=== PATIENT | female | born 1965 | race Caucasian/White ===

== ENCOUNTER 2017-01-29 15:30 | Observation (INO) | payer BC ==
[2017-01-29 16:44] LABS: Hematocrit 40 % (35-47); Hemoglobin 14.1 g/dl (12.0-16.0); Mean Corpuscular HGB Conc 35 g/dl (31-36); Mean Corpuscular Hemoglobin 31 pg (27-31); Mean Corpuscular Volume 88 fL (80-97); Mean Platelet Volume 8 um3 (7.4-10.4); Red Blood Count 4.57 10^6/ul (4.0-5.4); Red Cell Distribution Width 13 % (10.5-15)
[2017-01-29 17:03] LABS: Albumin 4.3 g/dL (3.2-5.2); BUN/Creatinine Ratio 21.8 (8-20); Calcium 9.7 mg/dL (8.6-10.3); EGFR Non-African American 78.5 (>60); Potassium 2.9 mmol/L (3.5-5.0); Total Bilirubin 0.5 mg/dL (0.2-1.0); Total Protein 7.3 g/dL (6.4-8.9)
[2017-01-29 17:04] LABS: Troponin I 0.01 ng/mL (<0.04)
--- NOTE | 2017-01-29 17:04 | RAD ---
Indication: Right-sided weakness. CT of the brain was performed without IV contrast. Ventricular structures are midline. No midline shift is noted. The extraction spaces are unremarkable. There is no evidence of intracranial mass or hemorrhage. No other high or low density lesions are identified. Mastoid air cells and paranasal sinuses are otherwise unremarkable. IMPRESSION: No intracranial mass or hemorrhage is noted.
[2017-01-29] MEDS ORDERED: Potassium Chlor TAB* 20 MEQ TAB.ER PO ONE (17:08)
--- NOTE | 2017-01-29 17:10 | RAD ---
Indication: Hypertension. 2 views of the chest including dual energy PA views demonstrates no mediastinal shift. Heart is of normal size and configuration. Lung howe are clear. IMPRESSION: No active cardiopulmonary disease is noted.
[2017-01-29] MEDS ORDERED: Labetalol IV* 5 MG/ML 20 ML VIAL IV PUSH ONE (17:16)
[2017-01-29 17:32] LABS: Magnesium 1.9 mg/dL (1.9-2.7)
[2017-01-29 17:35] LABS: T4 6.73 mcg/mL (6.09-12.23)
[2017-01-29 17:39] LABS: TSH (Thyroid Stimulating Horm) 4.21 mcIU/mL (0.34-5.60)
[2017-01-29] MEDS: KCL 10 MEQ/50 ML IVPREMIX* 10 MEQ/50 ML BAG IV SCH ×2 (18:07→19:33)
[2017-01-29] MEDS ORDERED: Cyclobenzaprine TAB* 10 MG PO PRN (19:24)
--- NOTE | 2017-01-29 20:52 | RAD ---
Indication: Right-sided weakness. Sagittal and axial T1, axial T2, FLAIR, diffusion and susceptibility weighted images of the brain were obtained. Ventricular structures are midline. No midline shift is noted. The extraction spaces are unremarkable. The FLAIR images demonstrates increased signal in the left cristal. This demonstrates restriction of diffusion is consistent with a left-sided pontine infarct. No intracranial mass or hemorrhage is noted. Susceptibility weighted images demonstrates no evidence of residual hemosiderin. No other areas of restriction of diffusion is noted. Mastoid air cells and paranasal sinuses are otherwise unremarkable. The orbits demonstrates no intraconal or extraconal masses. IMPRESSION: Small area of restriction of diffusion involving the left cristal consistent with a left pontine infarct.
[2017-01-29] MEDS ORDERED: Atorvastatin* 40 MG TAB PO SCH (21:00)
[2017-01-29] MEDS: Heparin VIAL(*) 5000 UNITS/ML VIAL (FIVE THOUSAND) SUBCUT SCH (21:53)
[2017-01-29] MEDS: Aspirin EC Low Dose* 81 MG TAB.EC PO SCH (21:54)
[2017-01-29] MEDS: amLODIPine TAB* 5 MG PO SCH (21:54)
--- NOTE | 2017-01-29 22:47 | HP ---
CC: Gabi Velez NP * HISTORY AND PHYSICAL: DATE OF ADMISSION: 01/29/17 PRIMARY CARE PROVIDER: Gabi Velez NP CHIEF COMPLAINT: Difficulty writing and unsteadiness. HISTORY OF PRESENT ILLNESS: Ms. Stacy is a 51-year-old female with a history of hypertension, hypo-thyroidism, chronic right hip pain, and B12 deficiency, who presents to initially her [facility] appointment and is found to have markedly elevated blood pressure. The patient was then referred to the emergency room. The patient states that over at least the last one month ( since she has been checking her blood pressures), her blood pressures have been running greater than 200/100. Today, at her [facility] appointment, her blood pressure was 196/110. The patient states that this past Wednesday, she and her worked out. She felt fine. During that time period, on Wednesday, she states that she felt very tired; on Wednesday she felt somewhat tired and the day prior to admission, she noted that she had a difficult time writing and felt off balance. The patient describes writing as being very difficult to read. 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 The patient's has noted since this past Wednesday that she has been off balance. The patient does complain of sciatic type issues and felt that her off balance state was likely related to that flaring up. The patient denies any significant or different headache. She denies any changes in vision. PAST MEDICAL HISTORY: 1. Hypertension - poorly controlled. 2. Hypokalemia. 3. Chronic right hip pain. 4. Hypothyroidism. 5. B12 deficiency. PAST SURGICAL HISTORY: 1. . 2. Bladder stretching as a child. ALLERGIES: No known drug allergies. MEDICATIONS: 1. Levothyroxine 75 microgram p.o. daily. 2. Cyclobenzaprine 5 mg p.o. t.i.d. p.r.n. spasm. 3. Triamterene/hydrochlorothiazide 37.5/25 1 tab p.o. daily. 4. Diclofenac sodium EC 75 mg p.o. twice daily. 5. Potassium citrate 10 mEq p.o. daily. 6. B complex 1 tab p.o. daily. 7. Vitamin B12 1000 mcg IM q. 2 weeks. 8. Magnesium plus calcium 1 tab p.o. daily. 9. Vitamin D3 2000 units p.o. daily. FAMILY HISTORY: Mom is living. She is 77. She has hypertension, hyperlipidemia, and diabetes. Dad is living, he is 76, he has hypertension, hyperlipidemia, and diabetes. SOCIAL HISTORY: The patient is a nonsmoker. She drinks alcohol on occasion. 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 She is . She has 2 children. Her is her healthcare proxy. REVIEW OF SYSTEMS: Complete 11-system review of systems is obtained. Pertinent positives and negatives are as per HPI and otherwise negative. PHYSICAL EXAMINATION GENERAL: The patient is a well-developed, middle-aged female, sitting in the stretcher, in no acute distress. VITAL SIGNS: Blood pressure 133/80, pulse 64, respirations 18, temp 97.7, O2 sat 97% on room air. HEENT: Pupils are equal, they are round. They react to light. Extraocular muscles are intact. Oropharynx is clear. Oral mucosa is moist. There is no submandibular, cervical, or supraclavicular adenopathy. Thyroid is not enlarged. No thyroid nodules are noted. PULMONARY: Lungs are clear to auscultation bilaterally. CARDIAC: Normal S1, S2. Regular rate and rhythm. I do not appreciate any murmurs. There is no lower extremity edema. ABDOMEN: Bowel sounds are present. Abdomen is soft, nontender, nondistended. MUSCULOSKELETAL: There is no cyanosis or clubbing of the digits. There is full active range of motion of all 4 extremities. NEUROLOGIC: Cranial nerves II through XII are grossly intact. Sensation is intact to light touch throughout. Strength is 5/5 and symmetric in the proximal upper and lower extremities. Distal strength in the right upper and lower extremity is 4/5. SKIN: Warm and dry. There are no rashes. DIAGNOSTIC STUDIES/LAB DATA: WBC 7.0, hemoglobin 14.1, hematocrit 40, platelets 366. Sodium 136, potassium 2.9, chloride 97, CO2 29, BUN 17, creatinine 0.78, glucose 104, lactic acid 1.6, calcium 9.7, magnesium 1.9, bilirubin 0.5, AST 24, ALT 30, alk phos 42. CPK 227, troponin 0.01. BNP 24, albumin 4.3, TSH 4.21. Chest x-ray, no acute pulmonary process. CT brain, no acute intracranial pathology. EKG revealed normal sinus rhythm without any acute ST-T wave abnormalities. ASSESSMENT AND PLAN: Ms. Stacy is a 51-year-old female with uncontrolled hypertension, who presents to the emergency room with complaints of difficulty writing and feeling of being off balance with ambulation and is found to have marked hypertension and mild right-sided weakness on exam. 1. Hypertensive encephalopathy versus CVA. The patient has persistent symptoms of right-sided weakness and difficulty with fine motor skills in the right upper extremity. I suspect the patient may have had a small stroke. The patient will be started on aspirin 81 mg p.o. daily. Improved blood pressure control will be achieved. The goal blood pressure will be around 160/90. The patient will have a lipid profile checked tomorrow morning. I will start her on Lipitor 40 . Tomorrow, neurology consultation will be requested. I have observed the patient's handwriting, which is incredibly difficult to read and she states that this is nowhere near her normal writing. I do not want to lower the patient's blood pressure too far as she is likely used to incredibly high blood pressures and needs the perfusion to her brain at this point. 2. Hypothyroidism. The patient will be maintained on her usual dose of Synthroid as her TSH is within normal range. 3. Hypertensive emergency. The patient's blood pressure as above is markedly elevated. This, in conjunction with her hypokalemia makes me concerned for primary hyperaldosteronism. A plasma renin activity level and plasma aldosterone concentration will be obtained. These will be obtained tomorrow morning. We will need to follow up these levels. 4. DVT prophylaxis. According to the Adult Thrombosis Prophylaxis Risk Factor Assessment Guide, the patient has a total risk factor score of 2, making her moderate risk. She will be placed on heparin 5000 units subcutaneous q. 12 hours. 5. Code status is full, again patient indicates that her is her healthcare proxy. TIME SPENT: Sixty five minutes was spent admitting this patient. [id number]/[facility] #: [id number] SARAVANAN
[2017-01-30 03:56] LABS: Urine Bilirubin Negative (Negative); Urine Glucose Negative (Negative); Urine Nitrite Negative (Negative)
[2017-01-30] MEDS ORDERED: Levothyroxine TAB* 75 MCG TAB PO SCH (06:00)
[2017-01-30 06:45] LABS: BUN/Creatinine Ratio 20.3 (8-20); Calcium 8.8 mg/dL (8.6-10.3); EGFR African American 126.8 (>60); EGFR Non-African American 98.6 (>60); Potassium 3.2 mmol/L (3.5-5.0)
[2017-01-30 07:25] LABS: Hematocrit 38 % (35-47); Hemoglobin 13.1 g/dl (12.0-16.0); Mean Corpuscular HGB Conc 34 g/dl (31-36); Mean Corpuscular Hemoglobin 30 pg (27-31); Mean Corpuscular Volume 88 fL (80-97); Mean Platelet Volume 9 um3 (7.4-10.4); Red Blood Count 4.31 10^6/ul (4.0-5.4); Red Cell Distribution Width 13 % (10.5-15)
[2017-01-30] MEDS: amLODIPine TAB* 5 MG PO SCH (08:03)
[2017-01-30] MEDS: Heparin VIAL(*) 5000 UNITS/ML VIAL (FIVE THOUSAND) SUBCUT SCH (08:03)
[2017-01-30] MEDS: Aspirin EC Low Dose* 81 MG TAB.EC PO SCH (08:03)
[2017-01-30] MEDS ORDERED: Acetaminophen TAB* 325 MG PO PRN (09:57)
[2017-01-30] MEDS ORDERED: Potassium Chlor TAB* 20 MEQ TAB.ER PO ONE (10:58)
--- NOTE | 2017-01-30 11:24 | PN ---
Subjective Date of Service: 01/30/17 Interval History: Pt is feeling ok. She slept alright over night. She states when she has been up to the bathroom she was still feeling slightly off balance. She thinks her hand coordination is slightly better today. Objective Active Medications: Acetaminophen (Tylenol Tab*) 650 mg PO Q4H PRN PRN Reason: PAIN Last Admin: 01/30/17 11:00 Dose: 650 mg Amlodipine Besylate (Norvasc Tab*) 5 mg PO DAILY [facility] Last Admin: 01/30/17 08:03 Dose: 5 mg Aspirin (Aspirin Ec Low Dose*) 81 mg PO DAILY [facility] Last Admin: 01/30/17 08:03 Dose: 81 mg Atorvastatin Calcium (Lipitor*) 40 mg PO 2100 [facility] Last Admin: 01/29/17 21:53 Dose: 40 mg Cyclobenzaprine HCl (Flexeril Tab*) 5 mg PO TID PRN PRN Reason: SPASMS Heparin Sodium (Porcine) (Heparin Vial(*)) 5,000 units SUBCUT Q12HR [facility] Last Admin: 01/30/17 08:03 Dose: 5,000 units Levothyroxine Sodium (Synthroid Tab*) 75 mcg PO 0600 [facility] Last Admin: 01/30/17 06:29 Dose: 75 mcg Vital Signs - 8 hr 01/30/17 01/30/17 03:29 07:41 Temperature 98.0 F 98.5 F Pulse Rate 95 86 Respiratory 20 16 Rate Blood Pressure 161/99 128/76 (mmHg) O2 Sat by Pulse 97 96 Oximetry Oxygen Devices in Use Now: None Appearance: Middle aged female sitting up in bed, NAD Eyes: No Scleral Icterus Ears/Nose/Mouth/Throat: Mucous Membranes Moist Respiratory: Symmetrical Chest Expansion and Respiratory Effort, Clear to Auscultation Cardiovascular: NL Sounds; No Murmurs; No JVD, RRR, No Edema Abdominal: NL Sounds; No Tenderness; No Distention Extremities: No Clubbing, Cyanosis Skin: No Rash or Ulcers, No Nodules or Sclerosis Neurological: Alert and Oriented x 3, - - mild R hand/foot weakness Result Diagrams: 01/30/17 06:20 01/30/17 06:20 Assess/Plan/Problems-Billing Ms Stacy is a 51 yo F who has a h/o difficult to control BP and hypothyroidism who presented to the ER with c/o markedly elevated blood pressure and R hand weakness and feeling off balance with walking. - Patient Problems (1) Left pontine CVA Current Visit: Yes Status: Acute Code(s): I63.50 - CEREB INFRC DUE TO UNSP OCCLS OR STENOS OF UNSP CEREB ARTERY SNOMED Code(s): 716529734 Comment: The MRI done last night shows a small left pontinine CVA. She has been started on ASA, lipitor (pt states she did not tolerated previously but is willing to try crestor). Continue BP control. Get carotid dopplers. The patient can have an echo as an outpatient. She needs PT/OT evals. I suspect her stroke is secondary to marked hypertension. (2) HTN (hypertension) Current Visit: Yes Status: Acute Code(s): I10 - ESSENTIAL (PRIMARY) HYPERTENSION SNOMED Code(s): 60427672 Comment: The patient's BP is quite a bit improved today on amlodipine. Will aim to keep the SBP 150-160 as she has been much more elevated for at least the last 1 month. I question if she may have primary hyperaldosteronism. Plasma renin activity and plasma aldosterone concentration levels are pending. For now continue amlodipine and monitor the blood pressure. Will resume triamterene/ HCTZ if SBP >170. (3) Hypokalemia Current Visit: Yes Status: Acute Code(s): E87.6 - HYPOKALEMIA SNOMED Code( s): 66238783 Comment: Possibly secondary to diuretic therapy but possibly secondary to hyperaldosteronism. Will give KCl 40mEq now. Her K will need to be followed as an outpatient. (4) DVT prophylaxis Current Visit: Yes Status: Acute Code(s): HOT2929 - SNOMED Code(s): 093949814 Comment: SQ heparin (5) Full code status Current Visit: Yes Status: Acute Code(s): Z78.9 - OTHER SPECIFIED HEALTH STATUS SNOMED Code(s): 545893745
[2017-01-30] MEDS ORDERED: Iohexol 350* (CONTRAST) 500 ML MDV IV SCH (13:10)
--- NOTE | 2017-01-30 14:45 | RAD ---
INDICATION: LEFT pontine stroke. RIGHT-sided weakness. COMPARISON: January 29, 2017 MRI TECHNIQUE: Multidetector CT images were obtained from the aortic arch to the vertex of the head with 80 mL Omnipaque 350 IV contrast. Arterial phase of enhancement. Multiplanar reformation including maximum intensity projection. 3-D arterial volume rendering. Stenosis estimations based on denominator of distal arterial diameter. NECK ANGIOGRAM REPORT: Normal configuration of the branch vessels at the aortic arch. Negative for ostial stenosis. Negative for atherosclerotic plaque at the RIGHT carotid bifurcation or internal carotid artery. Negative for evidence of sclerotic plaque at the LEFT carotid bifurcation or internal carotid artery. Tortuous distal LEFT internal carotid artery. Patent codominant vertebral arteries with both contributing to the basilar artery. No vertebral artery stenosis evident. No carotid or vertebral artery dissection evident. Cervical degenerative spondylosis most prominent at C5-C6 with moderate disc space narrowing. No evidence for acquired spinal stenosis. NECK ANGIOGRAM IMPRESSION: Negative for carotid or vertebral artery stenosis, occlusion, or dissection. HEAD ANGIOGRAM REPORT: Unremarkable bilateral intracranial internal carotid arteries as well as the M1 and M2 segments of the middle cerebral arteries and A1 and A2 segments of the anterior cerebral arteries. Patent anterior communicating artery. Unremarkable basilar artery and cerebellar artery origins. Patent bilateral posterior cerebral arteries are supplied primarily by the posterior circulation with normal variant hypoplastic posterior communicating arteries. No intracranial aneurysms evident. Hypodensity at the LEFT para midline cristal corresponding with the site of acute or subacute ischemia on MRI. HEAD ANGIOGRAM IMPRESSION: Negative CT angiogram of the head. CPT II: CPT II Codes: 3100F
[2017-01-30 15:39] VITALS: BP 147/87
--- NOTE | 2017-01-30 20:26 | CONS ---
NEUROLOGY CONSULTATION: DATE OF CONSULT: 01/30/17 LOCATION: The patient is an inpatient. REQUESTING PHYSICIAN: Leora Drake DO REASON FOR CONSULT: Pontine stroke. HISTORY OF PRESENT ILLNESS: Ms. Stacy is a 51-year-old woman with a longstanding history of hypertension, which sounds like it has been difficult to control as well as hypothyroidism, hypokalemia and chronic right sciatic pain , who presented to the emergency department yesterday after she was referred here directly from her BOARD ATTENDANT's office. She was at her BOARD ATTENDANT's office for a routine checkup and her blood pressure was markedly elevated there. In addition , she told her provider that she had had some difficulty with writing over the past couple of days and they advised her to come to the ER from that appointment. The patient reports the onset of difficulty writing in the last day or two. In addition, she seems to have more balance difficulties over that time as well, though she was attributing that to recently picking up exercising on the treadmill in conjunction with which she calls chronic piriformis problem with pain which radiates into her buttock and down her right leg. She denies any new vision difficulties such diplopia, dysarthria, dizziness, dysphagia. She denies extremity numbness. She denies any word finding problems. She has felt more tired over the past week or so. 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 Her blood pressure has recently been quite elevated over the last month or so to as high as 200/100 at home. Most recently she has been taking triamterene/ hydrochlorothiazide for her blood pressure, but in the past has also been treated with amlodipine and prior to that had been on just hydrochlorothiazide alone for a very long time. She also reports having been admitted here in the past with high blood pressure and low potassium. She was evaluated by Dr. Drake yesterday in the emergency department for admission when her blood pressure in the ER was 190s/100s and Dr. Drake ordered an MRI scan of the brain when she noted right hand and foot weakness and poor handwriting, which showed a left paramedian pontine stroke. She subsequently has been started on aspirin as well as a statin. Of note, the patient reports she has been treated with a statin in the past and developed myalgias, though she also has a history of fibromyalgia. She reports the myalgias are much more severe for a month when she was on atorvastatin in the past and then improved when she was off that medication. PAST MEDICAL HISTORY: Difficult to control hypertension, hypokalemia, hypothyroidism, chronic right buttock pain, fibromyalgia, B12 deficiency, C- section, bladder stretching as a child. HOME MEDICATIONS: 1. B-complex daily. 2. Triamterene/HCTZ 37.5/25 mg one capsule daily. 3. Magnesium chloride/calcium 64/112 mg one tablet daily. 4. Levothyroxine 75 mcg daily. 5. Vitamin D3 2000 units daily. 6. B12 injection 1000 mcg every 14 days. 7. Potassium citrate 10 mEq daily. 8. Flexeril 5 mg t.i.d. p.r.n. 9. Diclofenac 75 mg b.i.d. ALLERGIES: No known drug allergies. FAMILY HISTORY: There is a history of hypertension and myocardial infarction in her father. Mom also has hypertension and hyperlipidemia. SOCIAL HISTORY: She does not smoke. She drinks alcohol on occasion. 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 She is and has two adult children. REVIEW OF SYSTEMS: She does feel that she has been coming down with a cold over the last week or so. She denies any neck pain or recent neck trauma, though she does admit to seeing a chiropractor every two weeks and having high velocity manipulation of her neck. She denies any cardiac symptoms or respiratory symptoms. PHYSICAL EXAM: Vital Signs: Temperature 98.5. Review of her blood pressure shows that she was 191/106. When she was first seen in the emergency department and the blood pressure has fluctuated somewhat since then but most recently reading of 128/76 was recorded which is the lowest reading since she has been here. Of note, she received labetalol 20 mg IV yesterday at 1716 and was started on amlodipine 5 mg daily, which she received this morning. She was also receiving potassium replacement. General: She is a pleasant woman in no acute distress. Her heart is in regular rate and rhythm with no murmurs, rubs, or gallops. Lungs are clear to auscultation bilaterally. There are no carotid bruits. There is no joint erythema or swelling. Her skin is intact. Affect is appropriate. On neurologic examination, she is fully awake, alert, and oriented. Her speech is clear without dysarthria or aphasia. On cranial nerve examination, pupils are equal, round, and reactive from 4 to 2 mm bilaterally. Versions are full without nystagmus. Hills are full to confrontation with no extinction. Facial sensation intact in the V1 through V3 distributions bilaterally. Facial musculature is full and symmetric. Hearing is intact to finger rub. The palate elevates symmetrically and the tongue is midline. Shoulder shrug is full and symmetric. On motor examination, she has normal bulk and tone in the upper and lower extremities. On formal strength testing, I do not detect any significant weakness in her right upper or lower extremities and strength appears full throughout. She is mildly clumsy with finger taps on the right. When testing pronator drift, she does not pronate but that right arm does have a greater degree of sway than the left with eyes closed. When asked to touch her nose with her eyes closed, she had difficulty navigating to her nose on the first try on the right only. Her handwriting is legible but not at her baseline. Sensation is intact to temperature in the upper and lower extremities. Reflexes are 2+ throughout with downgoing toes. [id number] showed no evidence of ataxia, but there is ataxia on [id number] testing on the right. Romberg was positive. Her gait was relatively stable, but she did have pain in her buttock when ambulating which caused her to stop and lean towards the right at one point. She was able to rise on to her heels and her toes. DIAGNOSTIC STUDIES/LAB DATA: CBC was overall unremarkable. CMP initially showed a potassium of 2.9 which is improved to 3.2, but still low today. Her renal function is adequate with a slightly elevated BUN to creatinine ratio of 20.3. Her glucose was 102 this morning. Cholesterol studies showed triglycerides of 441, total cholesterol of 243, LDL of 156, and HDL of 28. Her thyroid functions were normal. Troponin was negative. Urinalysis was negative. CT of the brain was obtained and sowed no evidence of acute disease. MRI of the brain was obtained yesterday and personally reviewed and shows an acute infarct in the left paramedian cristal. There are no other significant areas of abnormality noted. The infarct is also present on the FLAIR sequence. IMPRESSION: Kimberley Stacy is a 51-year-old woman with refractory hypertension who is now found to have a left pontine infarction. Overall, clinically she looks excellent for the strokes that I see on the MRI scan. On exam she has some right lower extremity ataxia and a positive Romberg and persistent difficulty with fine motor in the right hand, but otherwise looks great. This was most likely related to her hypertension, but I would also like to check CT angiogram of the head and neck to evaluate her posterior circulation. Thankfully, she has not experienced worsening with the acute lowering of her blood pressure and if anything seems to be improving. We should certainly be careful not to lower it any further at this point however. I note that she was started on Lipitor, but reports problems with tolerability with that in the past, Crestor maybe a better option and I would recommend that she be switch to that prior to her discharge. She has also been started on low- dose baby aspirin and she should continue this at this point. Eventually, her goal blood pressures will be 120/80. I think it would be helpful to consider enlisting the help of a specialist for control of her blood pressure, either Cardiology or Nephrology. I note that Dr. Drake is working her up for primary aldosteronism as well. I would like the results of the CT angiogram prior to the patient's discharge today. If those are unremarkable, then I think it would be reasonable for her to go home and have an echocardiogram with bubble study as an outpatient, though if that can be done here in the hospital today prior to her discharge that would be preferable. I have discussed all of this with the patient and her and answered all questions. I would also like to see her back in my office in followup in about 8 weeks. Thank you for this consultation. [id number]/[facility] #: [id number] SARAVANAN
--- NOTE | 2017-01-31 03:06 | DS ---
CC: Dr. Hill; Gabi Velez NP * DISCHARGE SUMMARY: DATE OF ADMISSION: 01/29/17 DATE OF DISCHARGE: 01/30/17 PRIMARY CARE PROVIDER: Gabi Velez NP PRINCIPAL DIAGNOSES: 1. Left pontine cerebrovascular accident. 2. Marked hypertension - possible primary hyperaldosteronism. SECONDARY DIAGNOSES: 1. Hyperlipidemia. 2. Hypothyroidism. DISCHARGE MEDICATIONS: 1. Vitamin B complex 1 cap p.o. daily. 2. Magnesium plus calcium 1 tab p.o. daily. 3. Levothyroxine 75 mcg p.o. daily. 4. Vitamin D3 2000 units p.o. daily. 5. Vitamin B12 1000 mcg IM q.2 weeks. 6. Potassium citrate 10 mEq p.o. daily. 7. Flexeril 5 mg p.o. t.i.d. p.r.n. spasm. 8. Norvasc 5 mg p.o. daily (new). 9. Crestor 10 mg p.o. q.h.s. (new). 10. Aspirin 81 mg p.o. daily (new). Discontinued medications: Triamterene/hydrochlorothiazide. HOSPITAL COURSE: Ms. Stacy is a 51-year-old female with a longstanding history of hypertension that has been poorly controlled, at least 200/100 over the last 1 month who presents to initially her [employer] for annual appointment and was found to have marked hypertension and was sent to the emergency room for evaluation. In the ER, the patient stated that since this past Wednesday, she has been off balance. On the day prior to admission, she noted that she had clumsiness of her right hand. It was more of like a weakness. The patient was admitted for uncontrolled hypertension with hypertensive encephalopathy versus CVA. The patient received IV labetalol in the emergency room. With this, her blood pressure did improve some. She was started on amlodipine 5 mg daily. Her triamterene/hydrochlorothiazide has been discontinued due to hypokalemia. The patient ultimately underwent MRI of the brain on the evening of admission, which showed a left pontine CVA. I suspect this is the cause of her right- sided weakness. The patient now started on aspirin, Lipitor while in the hospital now changed Crestor on discharge and the amlodipine for blood pressure control. The patient was seen in consultation by Dr. Hill. She recommended the CTA, which did not reveal any significant stenosis. The patient will need an echocardiogram as an outpatient and this will need to be ordered by her primary care provider. In terms of the patient's hypertension, I am suspicious this could represent primary hyperaldosteronism given her marked hypertension and hypokalemia. The patient had a plasma renin concentration and plasma aldosterone concentration sent and results of these are pending at the time of this dictation. The patient should have these evaluated and be worked up for primary hyperaldosteronism. I changed the patient's blood pressure medication to amlodipine, which she has had good response to. I have aimed for a systolic blood pressure of 150 to 160 given her marked hypertension over the last 1 month. I have asked the patient to follow up with her primary care provider in the next 1 to 3 days for further adjustments in her antihypertensive regimen. The patient will likely need the amlodipine increased and perhaps another agent added. At this point, the patient is felt to be stable for discharge home. FOLLOWUP CONCERNS: The patient is being discharged home today, 01/30/17. ACTIVITY LEVEL: As tolerated. DIET: Heart healthy. CONDITION ON DISCHARGE: Stable. TIME SPENT: 35 minutes were spent discharging this patient. [id number]/[facility] #: [id number] SARAVANAN
--- NOTE | 2017-01-31 16:31 | ED ---
Davon Lee Angela, scribed for Mj Moncada MD on 01/29/17 at 1645 . Neurological HPI - HPI Summary HPI Summary: This pt is a 51 y/o female presenting to [facility] c/o off-balance and trouble writing since yesterday. Pt reports she had difficulty "forming letters" while writing. She also states tilting to the right while ambulating, difficulty getting in her truck. She notes "something is just not good." Pt was sent from her PCP's office for an evaluation of high blood pressure. Per , pt's blood pressure has been elevated all this week. PMHx includes HTN, hypothyroid, fibromyalgia. - History of Current Complaint Chief Complaint: EDHypertension Stated Complaint: HIGH BLOOD PRUSSER Time Seen by Provider: 01/29/17 16:12 Hx Obtained From: Patient Onset/Duration: Sudden Onset, Started days ago - 1, Still Present Timing: Constant Pain Intensity: 0 Pain Scale Used: 0-10 Numeric Character: Other: - POS: trouble writing, feeling off-balance, tilting to the right. - Allergy/Home Medications Allergies/Adverse Reactions: Allergies Allergy/AdvReac Type Severity Reaction Status Date / Time No Known Allergies Allergy Verified 01/29/17 19:06 Home Medications: Home Medications Cholecalciferol [Vitamin D3] 2,000 unit PO DAILY 01/29/17 [History Confirmed 10/08] Cyanocobalamin INJ * [Vitamin B12 INJ *] 1,000 mcg IM Q14D 01/29/17 [History Confirmed 01/29/17] Cyclobenzaprine TAB* [Flexeril 10 MG TAB*] 5 mg PO TID PRN 01/29/17 [History Confirmed 01/29/17] Diclofenac Sodium EC TAB* [Voltaren EC TAB*] 75 mg PO BID 01/29/17 [History Confirmed 01/29/17] Levothyroxine TAB* [Synthroid TAB*] 75 mcg PO DAILY 01/29/17 [History Confirmed 01/29/17] Magnesium Chloride-Calcium [Magnesium Chloride/Calciu 64-112 mg] 1 tab PO DAILY 01/29/17 [History Confirmed 01/29/17] Potassium Citrate (NF) [Urocit-K 10 (NF)] 10 meq PO DAILY 01/29/17 [History Confirmed 01/29/17] Triamterene/HCTZ 37.5-25 MG* [Dyazide CAP*] 1 cap PO DAILY 01/29/17 [History Confirmed 01/29/17] Vitamin B Complex CAP* [B Complex CAP*] 1 cap PO DAILY 01/29/17 [History Confirmed 01/29/17] PMH/Surg Hx/FS Hx/Imm Hx Endocrine/Hematology History: Reports: Hx Thyroid Disease - Hypothyroid, Hx Anemia - pernacious Denies: Hx Diabetes Cardiovascular History: Reports: Hx Hypertension Musculoskeletal History: Reports: Hx Fibromyalgia Infectious Disease History: No Infectious Disease History: Denies: Traveled Outside the [place] in Last 30 Days - Family History Known Family History: Positive: Cardiac Disease, Diabetes - Social History Alcohol Use: Occasionally Substance Use Type: Reports: None Smoking Status (MU): Never Smoked Tobacco Review of Systems Constitutional: Other - hypertension Negative: Fever, Chills Eyes: Negative ENT: Negative Cardiovascular: Negative Respiratory: Negative Gastrointestinal: Negative Neurological: Other - off-balance, trouble writing, tilting to the right All Other Systems Reviewed And Are Negative: Yes Physical Exam - Summary Physical Exam Summary: VITAL SIGNS: Reviewed. GENERAL: Patient is a well-developed and nourished female who is lying comfortable in the stretcher. Patient is not in any acute respiratory distress. HEAD AND FACE: No signs of trauma. No ecchymosis, hematomas or skull depressions. No sinus tenderness. EYES: PERRLA, EOMI x 2, No injected conjunctiva, no nystagmus. No photophobia. EARS: Hearing grossly intact. Ear canals and tympanic membranes are within normal limits. MOUTH: Oropharynx within normal limits. NECK: Supple, trachea is midline, no adenopathy, no JVD, no carotid bruit, no c- spine tenderness, neck with full ROM. No meningeal signs, no Kernig's or brudzinskis signs. CHEST: Symmetric, no tenderness at palpation LUNGS: Clear to auscultation bilaterally. No wheezing or crackles. CVS: Regular rate and rhythm, S1 and S2 present, no murmurs or gallops appreciated. ABDOMEN: Soft, non-tender. No signs of distention. No rebound no guarding, and no masses palpated. Bowel sounds are normal. EXTREMITIES: FROM in all major joints, no edema, no cyanosis or clubbing. NEURO: Alert and oriented x 3. No acute neurological deficits. Speech is normal and follows commands. NIH scale score = 0. SKIN: Dry and warm GCS: 15 Triage Information Reviewed: Yes Vital Signs On Initial Exam: Initial Vitals Temp Pulse Resp BP Pulse Ox 97.7 F 94 20 191/106 98 01/29/17 16:07 01/29/17 16:07 01/29/17 16:07 01/29/17 16:07 01/29/17 16:07 Vital Signs Reviewed: Yes Diagnostics - Vital Signs Vital Signs Temp Pulse Resp BP Pulse Ox 01/29/17 16:07 97.7 F 94 20 191/106 98 - Laboratory Result Diagrams: 01/29/17 16:30 01/29/17 16:30 Lab Statement: Any lab studies that have been ordered have been reviewed, and results considered in the medical decision making process. - Radiology Chest XR Xray Interpretation: No Acute Changes - IMPRESSION: No active cardiopulmonary disease is noted. ED physician has reviewed this radiology report and agrees. Radiology Interpretation Completed By: Radiologist - CT Brain CT CT Interpretation: No Acute Changes - IMPRESSION: No intracranial mass or hemorrhage is noted. ED physician has reviewed this radiology report and agrees. CT Interpretation Completed By: Radiologist - EKG 1622 Cardiac Rate: NL EKG Rhythm: Sinus Rhythm - at 81 bpm EKG Interpretation: No ST elevation. 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 Non-Paretic Hand: Both Correctly Best Gaze (Only Horizontal Eye Movement): Normal Visual Field Testing: No Visual Loss Facial Paresis-Pt to Smile & Close Eyes or Grimace Symmetry: Normal/Symmetrical Motor Function - Right Arm: No Drift-Holds 10 Seconds Motor Function - Left Arm: No Drift-Holds 10 Seconds Motor Function - Right Leg: No Drift-Holds 10 Seconds Motor Function - Left Leg: No Drift-Holds 10 Seconds Limb Ataxia-Must be out of Proportion to Weakness Present: Absent Sensory (Use Pinprick to Test Arms/Legs/Trunk/Face): Normal Best Language (Describe Picture, Name Items): No Aphasia Dysarthria (Read Several Words): Normal Extinction and Inattention: No Abnormality Total Score: 0 Course/Dx - Course Assessment/Plan: This pt is a 51 y/o female presenting to [facility] c/o off-balance and trouble writing since yesterday. Pt reports she had difficulty "forming letters" while writing. She also states tilting to the right while ambulating, difficulty getting in her truck. She notes "something is just not good." Pt was sent from her PCP's office for an evaluation of high blood pressure. Per , pt's blood pressure has been elevated all this week. PMHx includes HTN, hypothyroid, fibromyalgia. Test results without any significant abnormalities except potassium of 2.9 and total CK is 227. Head CT is negative for acute pathology. EKG shows NSR at [address] elevations. The blood pressure was initially elevated, therefore, the pt was given labetalol 10 mg IV. I discussed the case with Dr. Estes since he was having writing apraxia and right side weakness. Dr. Estes reports these symptoms are probably secondary to hypertension. However, the blood pressure is 170/100 and symptoms are still present. I discussed the case with Dr. Drake, who accepted the pt for admission. Pt is hemodynamically stable, alert and oriented x3. - Diagnoses Provider Diagnoses: Weakness, Uncontrolled hypertension - Physician Notifications Discussed Care Of Patient With: Leora Drake Time Discussed With Above Provider: 18:09 Instructed by Provider To: Other - I discussed the pt's case with Dr. Drake, who has agreed to admit the pt. Discharge - Discharge Plan Condition: Stable Disposition: ADMITTED TO [facility] The documentation as recorded by the Davon calixto Angela accurately reflects the service I personally performed and the decisions made by me, Mj Moncada MD.
== END 2017-01-30 19:00 | disposition home or self-care (01) ==
LOC: ED 15:30 → MEDTELE 18:12
PROVIDERS: ADMIT Hospitalist; ATTEND Hospitalist
DX: I63.9 Cerebral infarction, unspecified (principal); I10 Essential (primary) hypertension; E78.5 Hyperlipidemia, unspecified; E03.9 Hypothyroidism, unspecified; Z79.899 Other long term (current) drug therapy; Z79.82 Long term (current) use of aspirin; E87.6 Hypokalemia; M25.551 Pain in right hip; G89.29 Other chronic pain; E53.8 Deficiency of other specified B group vitamins
CPT/HCPCS: 36415; 70450; 70496; 70498; 70551; 71020; 80048; 80053; 80061; 81003; 82088; 82550; 83036; 83605; 83721; 83735; 83880; 84244; 84436; 84443; 84484; 85025; 93005; 96372; 96374; 99285; A9270-GY; G0378; G8978-GP-CI; G8979-GP-CH; J1644; J3480; Q9967